=== PATIENT | female | born 1995 | race Caucasian/White ===

== ENCOUNTER 2019-06-07 14:19 | Outpatient (CLI) | payer OTHER, SELFPAY ==
--- NOTE | ~2019-06-07 | US_ITS ---
EXAMINATION: US pelvic complete w TV EXAM DATE: 06/07/2019 14:49 INDICATION: Pelvic, perineal pain. TECHNIQUE: Pelvic transabdominal and transvaginal sonogram was performed. There are multiple graysca le and Doppler images available for interpretation. There is no prior study for comparison. FINDINGS: Uterus measures 7.6 x 3.5 x 5.2 cm, is anteverted and morphologically normal. Endometrial stripe measures 8 mm, within normal limits. There is no free pelvic fluid. Right adnexa: The ovary measures 3.5 x 4.6 x 2.8 cm and is morphologically normal. Ovarian vascular f low confirmed. Left adnexa: The ovary measures 3.8 x 2.9 x 2.5 cm and is morphologically normal. Ovarian vascular fl ow confirmed. IMPRESSION: 1. Unremarkable pelvic ultrasound exam. Reviewed, dictated and finalized at location B. [employer]
== END 2019-06-07 14:20 | disposition home or self-care (01) ==
DX: R10.2 Pelvic and perineal pain (principal); N94.10 Unspecified dyspareunia
CPT/HCPCS: 76830; 76856

== ENCOUNTER 2021-12-13 16:38 | Emergency (ER) | payer OTHER, SELFPAY ==
--- NOTE | ~2021-12-13 | XR_ITS ---
EXAMINATION: XR shoulder RT min 2V DATE: 12/13/2021 17:29 INDICATION: Right posterior shoulder pain TECHNIQUE: AP internally and externally rotated, AP oblique externally rotated and axillary views of the right shoulder were obtained. COMPARISON: None FINDINGS: Normal alignment. No fracture. Glenohumeral joint is normal. Acromioclavicular joint is normal. Medi an sternotomy wires. Soft tissues and visualized portions of the right lung are unremarkable. IMPRESSION: Negative right shoulder radiographs. Reviewed, dictated and finalized at location A.
[2021-12-13 16:55] VITALS: BP 122/72; PULSE 81; RESP 20; TEMP 36.9; O2SAT 98
--- NOTE | 2021-12-13 17:32 | ED.EXTPRO ---
HPI - Extremity Problem General Chief complaint: Extremity Problem,Nontraumatic Stated complaint: Rigth Shoulder Pain Time Seen by Provider: 12/13/21 17:10 Source: patient, RN notes reviewed and old records reviewed Mode of arrival: ambulatory Limitations: no limitations History of Present Illness HPI Narrative: 26 year old female who presents to [facility] care with complaints of right shoulder pain for the past 3 weeks which radiates down her arm to finger tips with some intermittent feeling of numbness to her last 3 fingers on right hand. Patient denies any known injury to her shoulder states that she does have a 23 pound 1 year old she is constantly picking up. Patient reports that the pain to her shoulder is a burning sensation and pain is intermittent.Patient has strong pulses to her right right arm. MD Complaint: extremity pain and other (right shoulder pain) Onset (ago): week(s) (3) Location: right and upper extremity Severity scale (1-10): 6 Related Data Allergies Allergy/AdvReac Type Severity Reaction Status Date / Time No Known Allergies Allergy Unknown Verified 12/13/21 16:40 Review of Systems Review of Systems: CONSTITUTIONAL: Denies fever, chills, or sweats. EYES: Denies visual changes, redness, or discharge. ENT: Denies rhinorrhea, congestion, sore throat, or otalgia. CARDIOVASCULAR: Denies chest pain, palpitations, or edema. RESPIRATORY: Denies cough or dyspnea. GASTROINTESTINAL: Denies abdominal pain, nausea, vomiting, or diarrhea. GENITOURINARY: Denies dysuria or hematuria. SKIN: Denies rash or itching. MUSCULOSKELETAL: Denies back pain,positive for right shoulder pain, or myalgia. NEUROLOGIC: Denies headache, numbness, or weakness. PSYCHIATRIC: Denies anxiety or depression. All systems reviewed & are unremarkable except as noted in HPI and below PMFSH Past Medical History Medical History (Updated 12/15/21 @ 10:43 by Mirela Berman NP) Anxiety ASD (atrial septal defect) Asthma Hx of migraines Surgical History Surgical History (Updated 12/15/21 @ 10:46 by Mirela Berman NP) History of heart surgery age 17 repair of ASD Social History Social History (Updated 12/15/21 @ 10:45 by Mirela Berman NP) Tobacco type: e-cigarettes/vaping Alcohol intake: current Alcohol use details: social Substance use type: does not use Living arrangements: with family Gender identity (if verbalized by the patient): Female Comments At time of signature, agree with nursing past medical, surgical, social and family history. There is no relevant family history pertinent to the presenting complaint Exam Narrative: GENERAL: Well-appearing, well-nourished, and in no acute distress. HEAD: Normocephalic, atraumatic. EYES: PERRLA and EOMI. ENT: Nares clear, no rhinorrhea or epistaxis. Mucous membranes moist.TM's normal with good light reflex, throat pink with no tonsil swelling or lesions NECK: Supple.no lymphadenopathy CHEST: Clear to auscultation. No respiratory distress. SAO2 98% on room air HEART: Regular rate and rhythm. No murmur heard. Normal peripheral pulses. ABDOMEN: Soft, nontender, nondistended, normal active bowel sounds. EXTREMITIES: Normal range of motion. No edema.Exception noted to right shoulder where patient has decreased ROM due to pain with burning pain intermittently right shoulder with some numbness tingling to right 3,4,5 th fingers atrong pulses to right arm, finger warm and pink with brisk capillary refill SKIN: Warm, dry, no rash. NEURO: No focal deficits. Alert and oriented x3. Course Course Level of Care: Express Care Visit Vital Signs Vital signs: Vital Signs Temperature 36.9 C 12/13/21 16:55 Pulse Rate 81 12/13/21 16:55 Respiratory Rate 20 12/13/21 16:55 Blood Pressure 122/72 12/13/21 16:55 Pulse Oximetry 98 12/13/21 16:55 Oxygen Delivery Room Air 12/13/21 16:55 Temperature 36.9 C 12/13/21 16:55 Pulse Rate 81 12/13/21 16:55 Respir
== END 2021-12-13 17:53 | disposition home or self-care (01) ==
PROVIDERS: Emergency Provider Registered Nurse
DX: S46.911A Strain of unspecified muscle, fascia and tendon at shoulder and upper arm level, right arm, initial encounter (principal); X58.XXXA Exposure to other specified factors, initial encounter; J45.909 Unspecified asthma, uncomplicated; F17.290 Nicotine dependence, other tobacco product, uncomplicated
CPT/HCPCS: 73030; 99213; G0463